=== PATIENT | female | born 1950 | race Caucasian/White ===

== ENCOUNTER 2019-12-01 12:53 | Emergency (ER) | payer OTHER ==
[2019-12-01 13:18] VITALS: BP 151/84
--- NOTE | 2019-12-01 13:28 | ED.PDOC ---
History of Present Illness - General Chief Complaint: General Stated Complaint: right arm swelling and pain Time Seen by Provider: 12/01/19 13:10 - History of Present Illness Initial Comments: 69 yo F with hx of breast cancer in 2018. Had double mastectomy and chemotherapy, which was completed june 2017. 5 days ago noticed her right arm was a little swollen. Drove her recently from [place] to visit children at their [facility]. Her arm became progressively more swollen so came to ER for evaluation. + painful. Has new mass under her right axilla which is going to be ultrasound in 3 days. no fever, no fall or injury. no shortness of breath. Allergies/Adverse Reactions: Allergies NO KNOWN ALLERGY Allergy (Verified 12/01/19 13:17) Home Medications: Ambulatory Orders Benazepril HCl [Benazepril Hydrochloride] 20 mg PO DAILY 12/01/19 Metformin HCl [Metformin Hydrochloride] 1,000 mg PO BID 12/01/19 Pantoprazole Sodium 40 mg PO DAILY 12/01/19 Raloxifene HCl [Evista] 60 mg PO DAILY 12/01/19 Verapamil HCl [Verapamil HCl Cr] 240 mg PO DAILY 12/01/19 Review of Systems - Review of Systems Constitutional: Denies: chills, diaphoresis, fever, weakness EENTM: Denies: blurred vision, throat pain Respiratory: Denies: cough, orthopnea, short of breath, stridor, wheezing Cardiology: Denies: chest pain, palpitations, syncope Gastrointestinal/Abdominal: Denies: abdominal pain, diarrhea, nausea, vomiting Genitourinary: Denies: dysuria, frequency Musculoskeletal: States: see HPI. Denies: back pain, joint pain, joint swelling, muscle pain, muscle stiffness, neck pain Skin: Denies: change in color, rash Neurological: Denies: anxiety, depressed, headache, numbness, paresthesia, seizure, tingling, tremors, weakness Endocrine: Denies: unexplained weight gain, unexplained weight loss Hematologic/Lymphatic: Denies: blood clots, easy bleeding, easy bruising Past Medical History (General) - Patient Medical History Hx Stroke: No Hx Congestive Heart Failure: No Hx Hypertension: Yes Hx Diabetes: Yes Hx Gastroesophageal Reflux: Yes Hx Cancer: Yes - Breast Surgical History: cholecystectomy - Vaccination History Hx Influenza Vaccination: Yes Hx Pneumococcal Vaccination: Yes Immunizations Comment: Shingles,Pertussis Family Medical History - Family History Mother Family History: Unknown Living Status: Unknown Physical Exam - Physical Exam General Appearance: Alert, Comfortable, No apparent distress Eye Exam: bilateral normal Ears, Nose, Throat: hearing grossly normal, normal ENT inspection Neck: non-tender, full range of motion, supple, normal inspection Respiratory: chest non-tender, lungs clear, normal breath sounds, no respiratory distress, no accessory muscle use Cardiovascular/Chest: normal peripheral pulses, regular rate, rhythm, no gallop, no JVD, no murmur Peripheral Pulses: radial,right: 2+, radial,left: 2+ Gastrointestinal/Abdominal: normal bowel sounds, non tender, soft, no organomegaly, no pulsatile mass Back Exam: normal inspection Extremity: normal range of motion, no pedal edema, no calf tenderness, other - right forearm 2+ edema compared to left. tender to palpation, no erythema. Axillary mass/nodule felt under right arm Neurologic: electrophysiologist II-XII nml as tested, no motor/sensory deficits, alert, normal mood/affect, oriented x 3 Skin Exam: normal color, warm/dry Lymphatic: axilla node tender (R) Progress - Progress Progress: 12/01/19 14:06 partial ddx considered: dvt, recurrent metastatic lesion, lymphedema, cellulitis. D-dimer is note recommend to exclude upper extremity dvt, well score 3. Recommend transfer to [facility] for US. Discussed case with ED physician, would like baseline blood work. Will obtain. Patients VSS. The data reviewed when caring for this patient included: nurse notes, etc. The history and assessments from nurses notes were reviewed and considered, and the patient's home medication list was also reviewed and considered. My assessment and the results of testing completed here in the ED were discussed with the patient/family. All questions were answered, and they express understanding of my assessment and the plan. She was transferred to [facility] in stable condition. Laboratory Results WBC 7.5 K/mm3 (4.8-10.8) 12/01/19 13:55 RBC 4.62 M/mm3 (4.20-5.40) 12/01/19 13:55 Hgb 13.5 gm/dL (12.0-16.0) 12/01/19 13:55 Hct 40.4 % (36.0-47.0) 12/01/19 13:55 MCV 87.4 fl (81.0-99.0) 12/01/19 13:55 MCH 29.2 pg (27.0-31.0) 12/01/19 13:55 MCHC 33.4 g/dL (33.0-37.0) 12/01/19 13:55 RDW 13.7 % (11.5-14.5) 12/01/19 13:55 Plt Count 227 K/mm3 (130-400) 12/01/19 13:55 MPV 8.5 fl (7.40-10.4) 12/01/19 13:55 Absolute Neuts (auto) 4.70 K/uL (1.8-6.8) 12/01/19 13:55 Absolute Lymphs (auto) 2.20 K/uL (1.0-3.4) 12/01/19 13:55 Absolute Monos (auto) 0.40 K/uL (0.2-0.8) 12/01/19 13:55 Absolute Eos (auto) 0.10 K/uL (0.0-0.4) 12/01/19 13:55 Absolute Basos (auto) 0.10 K/uL (0.0-0.1) 12/01/19 13:55 Neutrophils % 62.4 % (42.0-78.0) 12/01/19 13:55 Lymphocytes % 29.7 % (20.0-50.0) 12/01/19 13:55 Monocytes % 5.3 % (2.0-9.0) 12/01/19 13:55 Eosinophils % 1.5 % (1.0-5.0) 12/01/19 13:55 Basophils % 1.1 % (0.0-2.0) 12/01/19 13:55 Sodium 140 mmol/L (135-145) 12/01/19 13:53 Potassium 4.1 mmol/L (3.6-5.0) 12/01/19 13:53 Chloride 104 mmol/L (101-111) 12/01/19 13:53 Carbon Dioxide 24 mmol/L (21-31) 12/01/19 13:53 Anion Gap 16.1 (12-18) 12/01/19 13:53 BUN 18 mg/dL (7-18) 12/01/19 13:53 Creatinine 0.65 mg/dL (0.6-1.3) 12/01/19 13:53 BUN/Creatinine Ratio 27.7 (10-20) H 12/01/19 13:53 Random Glucose 109 mg/dL (70-105) H 12/01/19 13:53 Serum Osmolality 281.9 mOsm/L (275-295) 12/01/19 13:53 Calcium 8.9 mg/dL (8.4-10.2) 12/01/19 13:53 Total Bilirubin 0.5 mg/dL (0.2-1.0) 12/01/19 13:53 AST 36 IU/L (10-42) 12/01/19 13:53 ALT 32 IU/L (10-60) 12/01/19 13:53 Alkaline Phosphatase 51 IU/L (42-121) 12/01/19 13:53 Serum Total Protein 6.8 gm/dL (6.4-8.2) 12/01/19 13:53 Albumin 4.0 g/dl (3.2-5.5) 12/01/19 13:53 Globulin 2.8 gm/dL (2.3-3.5) 12/01/19 13:53 Albumin/Globulin Ratio 1.4 (1.1-1.9) 12/01/19 13:53 Departure - Departure Clinical Impression: Breast cancer in female Qualifiers: Breast location: unspecified site of breast Estrogen receptor status: unspecified Laterality: right Qualified Code(s): C50.911 - Malignant neoplasm of unspecified site of right female breast ICD-10 Supporting Text: Arm Swelling Hx of cancer Time of Disposition: 13:28 Disposition: Transfer to Hospital Departure Forms: ED Discharge - Pt. Copy, Patient Portal Self Enrollment Instructions: Venous Duplex Ultrasound Diet: resume usual diet Home Medications: Ambulatory Orders Benazepril HCl [Benazepril Hydrochloride] 20 mg PO DAILY 12/01/19 Metformin HCl [Metformin Hydrochloride] 1,000 mg PO BID 12/01/19 Pantoprazole Sodium 40 mg PO DAILY 12/01/19 Raloxifene HCl [Evista] 60 mg PO DAILY 12/01/19 Verapamil HCl [Verapamil HCl Cr] 240 mg PO DAILY 12/01/19 Additional Instructions: Transfer to [facility] [facility] for Right Upper extremity ultrasound to rule out blood clot.
[2019-12-01 14:10] VITALS: TEMP 97.2; O2SAT 99
== END 2019-12-01 14:02 | disposition short-term general hospital (02) ==
LOC: ER 12:53
DX: C50.911 Malignant neoplasm of unspecified site of right female breast (principal); M79.89 Other specified soft tissue disorders; I10 Essential (primary) hypertension; E11.9 Type 2 diabetes mellitus without complications; K21.9 Gastro-esophageal reflux disease without esophagitis; Z92.21 Personal history of antineoplastic chemotherapy; Z79.899 Other long term (current) drug therapy